=== PATIENT | male | born 1980 | race Two or more races ===

== ENCOUNTER 2016-12-12 16:35 | Emergency (ER) | payer OTHER ==
[2016-12-12] MEDS ORDERED: HYDROMORPHONE HCL 1 MG/ML SYRINGE ONE ×2 (17:03→19:36)
[2016-12-12] MEDS ORDERED: ONDANSETRON 4 MG/2ML 2 ML VIAL ONE (17:03)
--- NOTE | 2016-12-12 17:53 | RAD ---
LOWER LEG RIGHT HISTORY: Injury. COMPARISONS: None. FINDINGS: AP and lateral views of the right lower leg were performed demonstrating prior plate and screw fixation of the distal right fibula. The osseous structures appear to be otherwise intact with no acute fracture seen. The proximal and distal joint spaces are relatively well-maintained. No focal soft tissue abnormalities are seen. IMPRESSION: 1. Prior plate and screw fixation of the distal fibula. 2. Otherwise negative views of the right lower leg.
--- NOTE | 2016-12-12 17:54 | RAD ---
LOWER LEG LEFT HISTORY: Injury. COMPARISONS: None. FINDINGS: 2 views of the left lower leg were performed demonstrating intact osseous structures. The proximal and distal joint spaces are well-maintained. No focal soft tissue abnormalities are seen. IMPRESSION: 1. Negative views of the left lower leg.
--- NOTE | 2016-12-12 20:35 | CONS ---
SONIA HANNA [id number] ORTHOPEDIC CONSULTATION DATE OF CONSULTATION: December 12, 2016 HISTORY OF PRESENT ILLNESS: Sonia Capps is a 36-year-old male who was seen at the request of the emergency department physician, Dr. Miller, for evaluation of a possible left lower extremity compartment syndrome. Patient was examined with his permission. Imaging studies and medical records were reviewed. 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 He states that a large metal beam used to move the logs was suddenly let go by another umbrella tipper machine. This was a heavy beam weighing several hundred pounds. Mr. Pat Capps was standing at the time and was struck a glancing blow to both legs with the brunt of the force being received by the left leg anterior aspect. He experienced immediate pain and was subsequently brought to the emergency department at [facility] where he was examined by Dr. Miller. X-rays were taken. Dr. Miller reviewed the x-rays and felt that they did not show any fractures. However, he was concerned about a possibility of a compartment syndrome and requested an orthopedic consultation. PAST MEDICAL HISTORY: Patient denies any history of systemic illnesses including cardiovascular, respiratory, renal or liver disease. PAST SURGICAL HISTORY: Denies any prior surgeries. ALLERGIES: NO KNOWN DRUG ALLERGIES. MEDICATIONS: Denies. SOCIAL HISTORY: He denies use of alcohol or tobacco products. 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 CURRENT COMPLAINTS: He has a complaint of left leg pain. He states that he has also has some minimal pain in his right lower extremity. Most of the pain in his left leg is over the area of the anterior aspect primarily over the anterior compartment, over the tibialis anterior and over the extensor hallucis longus. He states that he also has some numbness in this foot and pain when he moves his toes. PHYSICAL EXAMINATION: GENERAL: The patient is a well nourished, well developed male who is cooperative with the examination. We are able to complete our communication with the assistance of an Russian/well logging captain from a remote site. We speak with two different interpreters. One gives her number as [phone] and the other [place] [id number]. The reason for two different interpreters is because the line went while the first champagne maker was speaking. We then contacted the interpreting agency and used the services of the second champagne maker. This was an audiovisual feed. A focused physical examination was then performed. EXTREMITIES: The examination limited to the lower extremities. Examination of the left lower extremity in the case of soft tissue swelling over the anterior compartment and also a small area of fluctuance distally. He has some tenderness to palpation over the left ankle. Minimal swelling is noted. He has full range of motion of the toes with respect to flexion and extension without any pain anywhere except in the toes. Passive flexion and extension of the toes and the foot and ankle cause him local pain, i.e. in the toes and also when the foot is flexed, he has pain in the left ankle. He does not have any pain in the area of the posterior compartments. Palpation of the compartments indicates mild degree of tension in the anterior compartment. However, this is in a small localized area. The remainder of the compartment is pain free and nontender and soft. There is also no tension in the posterior and lateral compartments. Sensation is grossly intact with respect to sharp/dull discrimination. He has a mild degree of hyperesthesia involving the toes on the dorsal surface. He has intact sensation on the dorsum of the foot. Plantar flexion and dorsal flexion do not cause him any leg pain. He has good movement of the left knee. Examination of the right leg is essentially unremarkable. He has normal range of motion. No tenderness to palpation except over a small area of the anterior tibia. Neurovascular status is intact. Compartments are all soft and supple. No pain with passive or active plantar flexion and dorsiflexion. RADIOLOGY: X-ray examination of the left lower extremity indicates no fractures visible affecting the tibia or any evidence of any fracture, dislocation of the ankle. DIAGNOSTIC IMPRESSION: Contusion to bilateral legs, left side more severe than the right. After the clinic examination was completed, I used a [employer] compartment measurement device to measure intracompartmental pressures, and we measured the anterior compartment pressure. This measured approximately 16 mm. I was able to measure at three separate sites. We did not reach the threshold of 30 mm of pressure indicating suspicion for compartment syndrome. Following this, patient was discharged from the hospital with the following disposition. He was instructed to keep his leg elevated, apply ice. Jorge A bandages were applied. He was instructed to use the crutches that he had and to avoid bearing any weight on his left leg. He was also advised that if his leg became worse, more tense, more swollen, more painful, he should contact the hospital or present to the emergency room for reevaluation whether it occurs tonight or over the weekend. He was also give a prescription for pain medication by Dr. Miller. He was instructed to call the orthopedic clinic on Thursday for a followup appointment. 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
== END 2016-12-12 16:36 | disposition home or self-care (01) ==
LOC: ED 16:35
DX: S80.12XA Contusion of left lower leg, initial encounter (principal); S80.11XA Contusion of right lower leg, initial encounter; W22.8XXA Striking against or struck by other objects, initial encounter; Y93.89 Activity, other specified; Y92.89 Other specified places as the place of occurrence of the external cause; Y99.0 Civilian activity done for income or pay
CPT/HCPCS: 73590 ×2; 96375; 96376; 99284; 96374; 99283; J1170 ×2; J2405